=== PATIENT | female | born 1970 | race Caucasian/White ===

== ENCOUNTER 2017-04-10 15:06 | Observation (INO) | payer SELFPAY ==
[2017-04-10] MEDS ORDERED: Sodium Chloride 0.9% 10 ML Syringe FLUSH PRN (15:13)
--- NOTE | 2017-04-10 15:41 | EDM.PDOC ---
ED HPI GENERAL MEDICAL PROBLEM - General Chief Complaint: Chest Pain Stated Complaint: Chest Pain Time Seen by Provider: 04/10/17 15:12 Source of Information: Reports: Patient History Limitations: Reports: No Limitations - History of Present Illness INITIAL COMMENTS - FREE TEXT/NARRATIVE: Patient referred to ER from [facility] after she presented there for left sided chest pain. Pain started yesterday and has been continuously present since then. Sharp, stabbing, and located in left anterior chest. Breathing makes it worse as does moving her left arm or trying to press palms together. Only change in usual activity or possible trigger for muscle injury was when she visited a friend yesterday and tried to help the friend "crack" their hip by bending legs/knees over abdomen to accomplish this. Does not remember any pain or unusual sensation at the time when she helped the friend get their legs in the air in the correct position. No numbness/tingling/weakness. No cough/wheezing. Smokes about 1/4 PPD No GI changes. No diaphoresis. No history of similar issues in past. Denies cardiac disease history. - Related Data Allergies Allergy/AdvReac Type Severity Reaction Status Date / Time ondansetron Allergy Hallucinati Verified 04/10/17 15:41 [From Zofran (as ons hydrochloride)] promethazine [From Phenergan] Allergy Hallucinati Verified 04/10/17 15:41 ons Home Meds: Home Meds . [No Known Home Meds] 04/10/17 [History] Past Medical History - Past Surgical History GI Surgical History: Reports: Appendectomy Female Surgical History: Reports: Section, Hysterectomy Musculoskeletal Surgical History: Reports: Shoulder Surgery (left) Social & Family History - Family History Cardiac: Reports: CAD, High Cholesterol, Hypertension, [place] Endocrine/Metabolic: Reports: Diabetes, type II - Tobacco Use Smoking Status *Q: Current Every Day Smoker - Alcohol Use Alcohol Use History: No - Recreational Drug Use Recreational Drug Use: Yes Drug Use in Last 12 Months: Yes Recreational Drug Type: Reports: Marijuana/Hashish ED ROS GENERAL - Review of Systems Review Of Systems: See Below Constitutional: Reports: No Symptoms. Denies: Fever, Weakness, Diaphoresis HEENT: Reports: No Symptoms Respiratory: Reports: Shortness of Breath (hurts to take a breath). Denies: Wheezing, Pleuritic Chest Pain, Cough, Sputum, Hemoptysis Cardiovascular: Reports: Chest Pain (see HPI). Denies: Dyspnea on Exertion, Edema, Lightheadedness, Orthopnea, Palpitations, Syncope GI/Abdominal: Reports: No Symptoms : Reports: No Symptoms Musculoskeletal: Reports: Other (left anterior chest pain, non-radiating). Denies: Neck Pain, Shoulder Pain, Arm Pain, Back Pain Skin: Reports: No Symptoms Neurological: Reports: No Symptoms. Denies: Headache, Numbness, Paresthesia, Tingling, Trouble Speaking, Difficulty Walking, Weakness, Change in Speech, Gait Disturbance Psychiatric: Reports: No Symptoms Hematologic/Lymphatic: Reports: No Symptoms ED EXAM, GENERAL - Physical Exam Exam: See Below Exam Limited By: No Limitations General Appearance: Alert, Moderate Distress, Obese Eye Exam: Bilateral Eye: EOMI, PERRL Ears: Normal External Exam Nose: No: Nasal Deformity, Nasal Swelling, Nasal Drainage Throat/Mouth: Normal Lips, Normal Voice, No Airway Compromise, Other (poor dentition. Some teeth missing. Mucus membranes moist. ) Head: Atraumatic, Normocephalic Neck: Normal Inspection, Supple, Non-Tender, Full Range of Motion. No: Lymphadenopathy (L), Lymphadenopathy (R) Respiratory/Chest: No Respiratory Distress, Lungs Clear, Normal Breath Sounds, No Accessory Muscle Use, Other (left anterior chest wall very tender, even to slight touch, reproduces patient complaint. ) Cardiovascular: Normal Peripheral Pulses, Regular Rate, Rhythm, No Edema, No JVD , No Murmur Peripheral Pulses: 2+: Radial (L), Radial (R), Dorsalis Pedis (L), Dorsalis Pedis (R) GI/Abdominal: Normal Bowel Sounds, Soft, Non-Tender, No Distention (Female) Exam: Deferred Rectal (Female) Exam: Deferred Back Exam: Normal Inspection. No: CVA Tenderness (L), CVA Tenderness (R), Muscle Spasm, Paraspinal Tenderness, Vertebral Tenderness Extremities: Non-Tender, No Pedal Edema, Normal Capillary Refill, Limited Range of Motion (left shoulder-movement triggers left chest pain in pectoral distribution. ) Neurological: Alert, Oriented, CN II-XII Intact, Normal Cognition, Normal Gait, Other (Equal tone and strength overall, limitations with testing left arm due to triggering left chest pain. 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 ) Psychiatric: Anxious Skin Exam: Warm, Dry, Intact, Normal Color, No Rash EKG INTERPRETATION EKG Date: 04/10/17 Time: 15:20 Rhythm: NSR Rate (Beats/Min): 93 [place]: Normal P-Wave: Present QRS: Normal ST-T: Normal QT: Normal Comparison: NA - No Prior EKG Course - Orders/Labs/Meds Orders: Active Orders 24 hr Category Date Time Status EKG Documentation Completion [RC] ASDIRECTED Care 04/10/17 15:15 Ordered Chest 2V [CR] Stat Exams 04/10/17 15:13 Ordered Potassium Chloride [KCl 10 MEQ in Water 50 ML] 10 meq Med 04/10/17 16:23 Ordered Premix Bag 1 bag IV ONETIME Sodium Chloride 0.9% [Normal Saline] 1,000 ml Med 04/10/17 16:23 Ordered IV ASDIRECTED Sodium Chloride 0.9% [Saline Flush] Med 04/10/17 15:13 Ordered 10 ml FLUSH ASDIRECTED PRN Saline Lock Insert [OM.PC] Stat Oth 04/10/17 15:13 Ordered Medication Orders Potassium Chloride 10 meq/ (Premix) 50 mls @ 50 mls/hr IV ONETIME ONE Stop: 04/10/17 17:22 Sodium Chloride (Normal Saline) 1,000 mls @ 100 mls/hr IV ASDIRECTED ONE Stop: 04/11/17 02:22 Sodium Chloride (Saline Flush) 10 ml FLUSH ASDIRECTED PRN PRN Reason: Keep Vein Open Labs: Laboratory Tests 04/10/17 04/10/17 04/10/17 Range/Units 15:16 15:16 15:16 WBC 5.4 (4.0-10.2) K/uL RBC 4.57 (3.77-5.09) M/uL Hgb 14.0 (11.7-15.5) g/dL Hct 41.3 (34.0-46.0) % MCV 90.4 (84.0-98.0) fL MCH 30.6 (28.2-33.3) pg MCHC 33.9 (31.7-36.0) g/dL RDW 13.1 (11.2-14.1) % Plt Count 196 (150-350) K/uL Neut % (Auto) 57.6 (45.0-80.0) % Lymph % (Auto) 30.7 (10.0-50.0) % [place] % (Auto) 10.0 (2.0-14.0) % Eos % (Auto) 1.1 (0.0-5.0) % Baso % (Auto) 0.6 (0.0-2.0) % Neut # (Auto) 3.12 (1.40-7.00) K/uL Lymph # (Auto) 1.66 (0.50-3.50) K/uL [place] # (Auto) 0.54 (0.00-1.00) K/uL Eos # (Auto) 0.06 (0.00-0.50) K/uL Baso # (Auto) 0.03 (0.00-0.20) K/uL D-Dimer, Quantitative < 100 (0-400) ng/mL Sodium 143 (136-145) mmol/L Potassium 2.8 L* (3.5-5.1) mmol/L Chloride 105 (98-107) mmol/L Carbon Dioxide 28.8 (21.0-32.0) mmol/L BUN 10 (7-18) mg/dL Creatinine 0.71 (0.51-1.17) mg/dL Est Cr Clr Drug Dosing 77.47 mL/min Estimated GFR (MDRD) > 60 mL/min Glucose 103 (74-106) mg/dL Calcium 9.1 (8.5-10.1) mg/dL Magnesium 1.8 (1.8-2.4) mg/dL Total Bilirubin 0.5 (0.2-1.0) mg/dL AST 11 L (15-37) U/L ALT 26 (12-78) U/L Alkaline Phosphatase 74 (46-116) IU/L Creatine Kinase 51 (26-308) U/L Creatine Kinase Index 2.0 (0.0-2.5) % CK-MB (CK-2) 1.00 (0.00-3.60) ng/mL Troponin I 0.000 (0.000-0.056) ng/mL Total Protein 7.0 (6.4-8.2) g/dL Albumin 3.8 (3.4-5.0) g/dL Meds: Medications Generic Name Dose Route Start Last Admin Trade Name Freq PRN Reason Stop Dose Admin Potassium Chloride 10 meq/ 50 mls @ 50 mls/hr 04/10/17 16:23 Premix IV 04/10/17 17:22 ONETIME ONE Sodium Chloride 1,000 mls @ 100 mls/hr 04/10/17 16:23 Normal Saline IV 04/11/17 02:22 ASDIRECTED ONE Sodium Chloride 10 ml 04/10/17 15:13 Saline Flush FLUSH ASDIRECTED PRN Keep Vein Open Discontinued Medications Generic Name Dose Route Start Last Admin Trade Name Freq PRN Reason Stop Dose Admin Diazepam 5 mg 04/10/17 15:34 04/10/17 15:49 Valium IVPUSH 04/10/17 15:35 Not Given ONETIME ONE Diazepam 5 mg 04/10/17 15:49 04/10/17 16:29 Valium. PO 04/10/17 15:50 5 mg ONETIME ONE Administration Diazepam 5 mg 04/10/17 15:49 04/10/17 15:51 Valium. PO 04/10/17 15:50 Not Given ONETIME ONE Ketorolac Tromethamine 30 mg 04/10/17 16:26 04/10/17 16:36 Toradol IVPUSH 04/10/17 16:27 30 mg ONETIME ONE Administration Lorazepam 1 mg 04/10/17 15:50 04/10/17 15:56 Ativan IVPUSH 04/10/17 15:51 Not Given ONETIME ONE Lorazepam 0.5 mg 04/10/17 15:50 04/10/17 16:29 Ativan IVPUSH 04/10/17 15:51 0.5 mg ONETIME ONE Administration Morphine Sulfate 5 mg 04/10/17 16:25 Morphine IVPUSH 04/10/17 16:26 ONETIME ONE Nicotine 21 mg 04/10/17 16:32 Habitrol TRDERM 04/10/17 16:33 ONETIME ONE Potassium Chloride 40 meq 04/10/17 15:52 04/10/17 16:28 Klor-Con M20 PO 04/10/17 15:53 40 meq ONETIME ONE Administration - Radiology Interpretation Free Text/Narrative:: Chest xray did not show changes suggesting pneumo/infiltrate/CHF. No cardiomegaly - Re-Assessments/Exams Free Text/Narrative Re-Assessment/Exam: 04/10/17 16:40 EKG/Trop/CKMB/DDimer/CBC overall unremarkable. Significant hypokalemia noted. Possible that this is triggering muscle spasm and is cause of presenting complaint. Patient given potassium in ER. Admitted observation. Plan at this time is to continue K supplementation as well as continue cardiac monitoring and serial troponin/CKMB. Anticipate likely discharge tomorrow if potassium level can be normalized and pain improved. Will have patient follow up with primary provider for continued evaluation of cause of hypokalemia as that is unclear at this point in time. However, patient admits to eating less recently as she is trying to lose weight. Departure - Departure Time of Disposition: 17:01 Disposition: Refer to Observation Condition: Fair Clinical Impression: Hypokalemia, Left-sided chest wall pain, Hypomagnesemia - Discharge Information Referrals: Bhakti Cárdenas PA-C [Primary Care Provider] - Forms: ED Department Discharge - Problem List & Annotations (1) Hypokalemia SNOMED Code(s): 72485949 Code(s): E87.6 - HYPOKALEMIA Status: Acute Priority: High Current Visit : Yes Onset Date: ~04/10/17 Annotation/Comment:: Supplemental potassium PO and IV planned. May be associated with patient's complaint of left chest pain. (2) Hypomagnesemia SNOMED Code(s): 930155596 Code(s): E83.42 - HYPOMAGNESEMIA Status: Chronic Priority: Medium Current Visit: Yes Annotation/Comment:: Patient's serum magnesium is at bottom of normal which would indicate that intracellular Mg is assuredly low. Will initiate PO supplementation. May also be contributing to left chest wall pain if indeed musculo/skeletal in nature. (3) Left-sided chest wall pain SNOMED Code(s): 784223568 Code(s): R07.89 - OTHER CHEST PAIN Status: Acute Priority: High Current Visit: Yes Onset Date: 04/09/17 Annotation/Comment:: No history of cardiac disease. Strong family history of CAD. Initial cardiac workup negative. Will perform serial labs and repeat EKG in am. Pain is reproducible by palpation over left pectoral muscle, and made worse with movement and breathing. Suggests chest wall pain of musculoskeletal origin. May be related to patient's low K and Mg. (4) Tobacco dependence SNOMED Code(s): 42512316 Code(s): F17.200 - NICOTINE DEPENDENCE, UNSPECIFIED, UNCOMPLICATED Status: Chronic Priority: Low Current Visit: Yes - Problem List Review Problem List Initiated/Reviewed/Updated: Yes - My Orders Last 24 Hours: My Active Orders 04/10/17 15:13 Chest 2V [CR] Stat Sodium Chloride 0.9% [Saline Flush] 10 ml FLUSH ASDIRECTED PRN Saline Lock Insert [OM.PC] Stat 04/10/17 15:15 EKG Documentation Completion [RC] ASDIRECTED 04/10/17 16:23 Potassium Chloride [KCl 10 MEQ in Water 50 ML] 10 meq Premix Bag 1 bag IV ONETIME Sodium Chloride 0.9% [Normal Saline] 1,000 ml IV ASDIRECTED - Assessment/Plan Admission H&P: Please use this note as an admission H&P Last 24 Hours: My Active Orders 04/10/17 15:13 Chest 2V [CR] Stat Sodium Chloride 0.9% [Saline Flush] 10 ml FLUSH ASDIRECTED PRN Saline Lock Insert [OM.PC] Stat 04/10/17 15:15 EKG Documentation Completion [RC] ASDIRECTED 04/10/17 16:23 Potassium Chloride [KCl 10 MEQ in Water 50 ML] 10 meq Premix Bag 1 bag IV ONETIME Sodium Chloride 0.9% [Normal Saline] 1,000 ml IV ASDIRECTED Assessment:: Left chest pain. Hypokalemia. Low Magnesium. Plan: Admit observation. Telemetry. Serial cardiac markers. Repeat EKG in AM. IV and PO potassium. PO magnesium. Anticipate discharge within 24-36 hours if numbers normalize, cardiac workup remains negative, and pain improves.
[2017-04-10] MEDS ORDERED: Diazepam 5 MG Tab PO ONE ×2 (15:49)
[2017-04-10] MEDS ORDERED: LORazepam 2 MG/ML SDV IVPUSH ONE ×2 (15:50)
[2017-04-10 15:52] LABS: CHLORIDE,CL 105 mmol/L (98-107); SODIUM,NA 143 mmol/L (136-145)
[2017-04-10] MEDS ORDERED: Potassium Chloride 20 MEQ Tab.ER PO ONE ×3 (15:52→23:00)
[2017-04-10] MEDS ORDERED: Sodium Chloride 0.9% 1,000 ML IV ONE (16:23)
[2017-04-10] MEDS ORDERED: Potassium Chloride 10 MEQ in Premix Bag 1 BAG IV ONE ×2 (16:23→19:00)
[2017-04-10] MEDS ORDERED: Morphine 10 MG/ML Syringe IVPUSH ONE (16:25)
[2017-04-10] MEDS ORDERED: Ketorolac 30 MG/ML SDV IVPUSH ONE (16:26)
[2017-04-10] MEDS ORDERED: Nicotine 21 MG/24 Hr Patch TRDERM ONE (16:32)
[2017-04-10] MEDS: D5 1/2 NS w/ 40 mEq/L KCl 1,000 ML IV SCH (17:31)
[2017-04-10] MEDS ORDERED: Magnesium Oxide 400 MG Tab PO ONE (17:36)
[2017-04-10] MEDS ORDERED: Prochlorperazine 10 MG/2 ML SDV IVPUSH PRN (17:42)
[2017-04-10] MEDS ORDERED: Diazepam 5 MG Tab PO PRN (17:44)
[2017-04-10] MEDS ORDERED: Ketorolac 30 MG/ML SDV IVPUSH PRN (17:45)
[2017-04-10] MEDS ORDERED: Acetaminophen 325 MG Tab PO PRN (17:46)
[2017-04-10] MEDS ORDERED: Morphine 10 MG/ML Syringe IVPUSH PRN (17:46)
[2017-04-10] MEDS: Nicotine 21 MG/24 Hr Patch TRDERM SCH (18:18)
[2017-04-11] MEDS: D5 1/2 NS w/ 40 mEq/L KCl 1,000 ML IV SCH (04:39)
[2017-04-11] MEDS ORDERED: Magnesium Oxide 400 MG Tab PO SCH (08:00)
[2017-04-11] MEDS ORDERED: Potassium Chloride 20 MEQ Tab.ER PO SCH (08:00)
[2017-04-11] MEDS: Nicotine 21 MG/24 Hr Patch TRDERM SCH (08:33)
[2017-04-11 08:50] LABS: CHLORIDE,CL 108 mmol/L (98-107); SODIUM,NA 141 mmol/L (136-145)
--- NOTE | 2017-04-11 10:16 | PCM.DCSUM1 ---
Discharge Summary - Hospital Course HPI Initial Comments: See emergency room note/admission H&P Brief History: See emergency room note/admission H&P - Discharge Data Discharge Date: 04/11/17 Discharge Disposition: Home, Self-Care 01 Condition: Good - Discharge Diagnosis/Problem(s) (1) Left-sided chest wall pain SNOMED Code(s): 795956066 ICD Code: R07.89 - OTHER CHEST PAIN Status: Acute Priority: High Current Visit: Yes Onset Date: 04/09/17 Problem Details: Occasional nonspecific brief/seconds of chest wall pain spasms, including during hospital rounds this morning. No evidence of true anginal type symptoms with no previous history of cardiac disease. She has not had a cardiac workup to this point. Note some nonspecific anterior wall T wave inversions in today's EKG, although negative serial cardiac enzymes. She does have multiple cardiac risk factors, including newly diagnosed mild dyslipidemia today, current illicit drug use, previous alcohol abuse between ages 15 and her mid 30s, and tobacco abuse, including smoking one half to one pack of cigarettes per day between ages 12 and currently, i.e., 33 years. Close follow-up by her regular providers as per discharge instructions. Cardiolite stress test advisable LUAN, although this is not available in our facility until 05/04. Work excuse provided, including recommended work restrictions, fall/injury precautions, etc., which was also discussed with the patient and her brother today. Strong family history of CAD, including her sister having a two-vessel CABG in her mid 50s and a brother with 2 PTCA/stents in his mid 50s, although they apparently did not have MIs. Mother with history of fatal ND and CHF at age 73 with previous PTCA/stent 2 in her 60s. Note that her chest wall pain was previously reproducible by palpation over left pectoral muscle and made worse with movement and breathing. Suggests chest wall pain of musculoskeletal origin. Note normal potassium today with similar type symptoms as on admission, although significantly improved. (2) Illicit drug use, continuous SNOMED Code(s): 416952451 ICD Code: F19.90 - OTHER PSYCHOACTIVE SUBSTANCE USE, UNSPECIFIED, UNCOMPLICATED Status: Chronic Priority: Medium Current Visit: Yes Problem Details: Note positive urine drug screen as below. IV Ativan given in the emergency room. Patient admits to previous methamphetamine abuse with apparent one time use shortly prior to admission otherwise not for quite some time? She also admits to regular marijuana use. Cessation of all illicit drug use LUAN was strongly encouraged with effects on her health status, including her heart, etc. also extensively discussed with the patient and her brother, Masood. Emotional support provided (3) Tobacco abuse counseling SNOMED Code(s): 309992922, 638329037 ICD Code: Z71.6 - TOBACCO ABUSE COUNSELING Status: Chronic Priority: Medium Current Visit: Yes Problem Details: Tobacco cessation strongly encouraged with information to be provided at discharge and nicotine patch therapy conducted during this hospitalization. Consider PFTs depending on her clinical course with no known previous history of COPD (4) Osteoarthritis SNOMED Code(s): 918531371 ICD Code: M19.90 - UNSPECIFIED OSTEOARTHRITIS, UNSPECIFIED SITE Status: Chronic Priority: Medium Current Visit: Yes Problem Details: Otherwise stable other than intermittent nonspecific left chest wall pain/spasms Qualifiers: Osteoarthritis location: multiple joints Osteoarthritis type: primary Qualified Code(s): M15.0 - Primary generalized (osteo)arthritis (5) Mixed anxiety depressive disorder SNOMED Code(s): 550796846 ICD Code: F41.8 - OTHER SPECIFIED ANXIETY DISORDERS Status: Chronic Priority: Medium Current Visit: Yes Problem Details: Persistent moderate anxious and depressed affect during today's evaluation with no suicidal ideation. Note illicit drug use as above. Continue to observe closely by her regular providers. Emotional support provided (6) Hypokalemia SNOMED Code(s): 39872349 ICD Code: E87.6 - HYPOKALEMIA Status: Acute Priority: High Current Visit: Yes Onset Date: ~04/10/17 Problem Details: No specific etiology of patient's severe hypokalemia on arrival. She denies recurrent diarrhea, emesis, etc., although she has been on a liquid diet. Her diet discussed with low-fat, low-cholesterol diet recommended. Observe closely by her regular providers with no current additional supplementation and resolution of her hypokalemia prior to discharge after supplementation during this hospitalization (7) Hypomagnesemia SNOMED Code(s): 003110812 ICD Code: E83.42 - HYPOMAGNESEMIA Status: Acute Priority: Medium Current Visit: Yes Onset Date: 04/10/17 Problem Details: Patient's serum magnesium is at bottom of normal which would indicate that intracellular Mg is assuredly low. Will initiate PO supplementation. May also be contributing to left chest wall pain if indeed musculo/skeletal in nature. (8) Dyslipidemia SNOMED Code(s): 837719791 ICD Code: E78.5 - HYPERLIPIDEMIA, UNSPECIFIED Status: Acute Priority: Medium Current Visit: Yes Onset Date: 04/11/17 Problem Details: Mild dyslipidemia diagnosed today. Observe for now. Initiate heart healthy diet. Glycosylated hemoglobin normal today, despite strong family history of diabetes mellitus - Patient Summary/Data Operative Procedure(s) Performed: None Complications: None Consults: None Labs Pending at D/C: Urine culture and sensitivity Chest x-ray report, final, from 03/10/17 Recommended Follow-up Testing/Procedures: As per discharge instructions Planned Operative Procedure(s) after DC: None Hospital Course: Patient was admitted to observation status on telemetry with negative workup for acute ND as above. Note multiple cardiac risk factors and nonspecific EKG changes this morning with various therapeutic options discussed. Outpatient workup for now with close follow-up by her regular provider as per discharge instructions. Patient did receive both oral and IV potassium supplementation with additional oral magnesium IV Ativan, and IV Toradol therapy for her nonspecific chest wall pain. No complications during this hospitalization. Overall good response to treatment measures during this hospitalizations as above. - Patient Instructions Diet: Heart Healthy Diet Activity: No Strenuous Activities (Maintain 50% maximum exercise restriction with strict fall and injury precautions until your cardiac status has been determined any have been released by your providers) Driving: May Drive Today Showering/Bathing: May Shower Notify Provider of: Increased Pain, Nausea and/or Vomiting Other/Special Instructions: 1. Follow-up with your regular provider, Bhakti Moore PA-C, at [facility] in one week with recommended CBC, troponin I, CK, CK-MB, basic metabolic panel, magnesium level, and EKG. 2. Activity restrictions, fall/injury precautions, etc. as discussed. 3. Work excuse- See Form. 4. Stop all tobacco and marijuana use LUAN as directed/per provided information and consider contacting [employer], etc.. 5. Discontinue all illicit drug use LUAN as discussed. 6. Tylenol 650 mg by mouth every 4 hours and/or OTC ibuprofen 2-3 tabs by mouth every 6 hours with food as directed./needed. 7. BenGay or equivalent, heating pad, and/or ice packs as directed. 8. Continue to observe your anxiety and depression closely through your regular providers with possible reinitiation of previous medical therapy. 9. Discuss recommended Cardiolite stress test/heart evaluation on an outpatient basis LUAN with next available appointment in this facility on 05/04. Your regular provider may have this evaluation scheduled either in this facility or earlier at [facility], if possible. - Discharge Plan Prescriptions/Med Rec: Magnesium Oxide 400 mg PO DAILY #30 tablet Home Medications: Home Meds Magnesium Oxide 400 mg PO DAILY #30 tablet 04/11/17 [Rx] Patient Handouts: Hypokalemia, Nonspecific Chest Pain, [id number], Chest Wall Pain, [id number], Fat and Cholesterol Restricted Diet, [id number], Heart-Healthy Eating Plan, [id number] Forms: ED Department Discharge Referrals: Bhakti Cárdenas PA-C [Primary Care Provider] - - Discharge Summary/Plan Comment DC Time >30 min.: Yes Discharge Summary/Plan Comment: As above. Extensive precautions were given to the patient and her brother, Masood , who are in agreement with the treatment plan. See Patient Instructions for further treatment and plan. - General Info Date of Service: 04/11/17 Admission Dx/Problem (Free Text: 1. Nonspecific chest wall pain 2. Hypokalemia Functional Status: Reports: Pain Controlled, Tolerating Diet, Ambulating, Urinating. Denies: New Symptoms, Incentive Spirometry Numeric/FACES Score: 5 (Brief chest wall spasms) - Review of Systems General: Reports: No Symptoms. Denies: Fever, Weakness, Fatigue, Malaise, Chills, Night Sweats, Appetite HEENT: Reports: No Symptoms. Denies: Ear Pain, Eye Pain, Headaches, Post Nasal Drip, Sinus Congestion, Sore Throat, Rhinitis, Visual Changes Pulmonary: Reports: Pleuritic Chest Pain (Nonspecific chest wall pain as above) . Denies: Shortness of Breath, Cough, Sputum, Hemoptysis, Wheezing Cardiovascular: Reports: No Symptoms, Chest Pain (As above). Denies: Palpitations, Dyspnea on Exertion, Orthopnea, PND, Lightheadedness Gastrointestinal: Reports: No Symptoms, Other (Normal bowel movement this morning by patient's history). Denies: Abdominal Pain, Constipation, Decreased Appetite, Diarrhea, Difficulty Swallowing, Hematochezia, Melena, Nausea, Vomiting Genitourinary: Reports: No Symptoms. Denies: Dysuria, Frequency, Burning, Pain , Urgency, Incontinence, Hematuria, Retention, Flank Pain Musculoskeletal: Reports: No Symptoms. Denies: Neck Pain, Shoulder Pain, Arm Pain, Back Pain, Leg Pain Skin: Reports: No Symptoms. Denies: Diaphoresis, Bruising Neurological: Reports: No Symptoms. Denies: Confusion, Dizziness, Numbness, Paresthesia, Tingling, Weakness Psychiatric: Reports: Depression, Anxiety. Denies: Confusion, Mood Lability, Agitation, Cravings, Hallucinations, Suicidal Ideation, Homicidal Ideation - Patient Data Vitals - Most Recent: Last Vital Signs Temp 37.1 C 04/11/17 06:00 Pulse 89 04/11/17 06:00 Resp 15 04/11/17 06:00 BP 114/75 04/11/17 06:00 Pulse Ox 97 04/11/17 06:00 Vital Signs - 24 hr 04/10/17 04/10/17 04/10/17 15:15 15:45 16:00 Temperature [ 36.4 C 36.4 C Temporal] Pulse, 106 H 93 96 Peripheral [ Pulse Oximetry] Respiratory 20 20 18 Rate Blood Pressure 143/95 H 135/98 H 145/100 H [Right Upper] O2 Sat by Pulse 100 100 96 Oximetry 04/10/17 04/10/17 04/10/17 16:15 16:30 17:36 Temperature [ 36.4 C 36.4 C Temporal] Pulse, 90 88 73 Peripheral [ Pulse Oximetry] Respiratory 18 18 16 Rate Blood Pressure 133/94 H 151/95 H 150/92 H [Right Upper] O2 Sat by Pulse 100 100 100 Oximetry 04/11/17 04/11/17 00:00 06:00 Temperature [ 35.3 C 37.1 C Temporal] Pulse, 97 89 Peripheral [ Pulse Oximetry] Respiratory 16 15 Rate Blood Pressure 118/71 114/75 [Right Upper] O2 Sat by Pulse 96 97 Oximetry Weight - Most Recent: 76.612 kg I&O - Last 24 hours: Intake & Output 04/10/17 04/11/17 04/11/17 22:59 06:59 14:59 Intake Total 400 1095 Balance 400 1095 Imaging Impressions - Last 24 hrs: property assessment monitor shows normal sinus rhythm in the 90s with no ectopy or arrhythmia Chest x-ray, PA and lateral, from 03/10/17 shows no evidence of abnormality based on evaluation of a [facility] physician with final report pending Lab Results - Last 24 hrs: Laboratory Results - last 24 hr 04/10/17 04/11/17 04/11/17 Range/Units 20:40 05:00 05:00 Sodium (136-145) mmol/L Potassium 3.7 (3.5-5.1) mmol/L Chloride (98-107) mmol/L Carbon Dioxide (21.0-32.0) mmol/L BUN (7-18) mg/dL Creatinine (0.51-1.17) mg/dL Est Cr Clr Drug Dosing mL/min Estimated GFR (MDRD) mL/min Glucose (74-106) mg/dL Calcium (8.5-10.1) mg/dL Creatine Kinase 38 (26-308) U/L Creatine Kinase Index 1.6 (0.0-2.5) % CK-MB (CK-2) 0.60 (0.00-3.60) ng/mL Troponin I 0.004 (0.000-0.056) ng/mL Specimen Type Urinblad Urine Color Kellee Urine Appearance Cloudy Urine pH 6.5 (5.0-9.0) Ur Specific [place] 1.025 (1.005-1.030) Urine Protein Trace H (NEGATIVE) mg/dL Urine Glucose (UA) Negative (NEGATIVE) mg/dL Urine Ketones Negative (NEGATIVE) mg/dL Urine Occult Blood Negative (NEGATIVE) Urine Nitrite Negative (NEGATIVE) Urine Bilirubin Negative (NEGATIVE) Urine Urobilinogen 1.0 (0.2-1.0) E.U./dL Ur Leukocyte Esterase Negative (NEGATIVE) Urine RBC Not seen /HPF Urine WBC 5-10 H /HPF Ur Epithelial Cells Few /LPF Other Crystals Occasional /HPF Amorphous Sediment Moderate H (0/HPF) /HPF Urine Bacteria Many H (NONE TO FEW) /HPF Urine Opiates Screen Negative (NEGATIVE) Urine Methadone Screen Negative (NEGATIVE) U Acetaminophen Screen TNP Ur Barbiturates Screen Negative (NEGATIVE) Ur Tricyclics Screen Negative (NEGATIVE) Ur Phencyclidine Scrn TNP Ur Amphetamine Screen Negative (NEGATIVE) U Methamphetamines Scrn Positive H (NEGATIVE) U Benzodiazepines Scrn Positive H (NEGATIVE) U Cocaine Metab Screen Negative (NEGATIVE) U Marijuana (THC) Screen Negative (NEGATIVE) 04/11/17 04/11/17 Range/Units 07:17 07:17 Sodium 141 (136-145) mmol/L Potassium 4.2 (3.5-5.1) mmol/L Chloride 108 H (98-107) mmol/L Carbon Dioxide 26.7 (21.0-32.0) mmol/L BUN 8 (7-18) mg/dL Creatinine 0.70 (0.51-1.17) mg/dL Est Cr Clr Drug Dosing 77.90 mL/min Estimated GFR (MDRD) > 60 mL/min Glucose 117 H (74-106) mg/dL Calcium 8.4 L (8.5-10.1) mg/dL Creatine Kinase 28 (26-308) U/L Creatine Kinase Index 1.4 (0.0-2.5) % CK-MB (CK-2) 0.40 (0.00-3.60) ng/mL Troponin I 0.001 (0.000-0.056) ng/mL Specimen Type Urine Color Urine Appearance Urine pH (5.0-9.0) Ur Specific [place] (1.005-1.030) Urine Protein (NEGATIVE) mg/dL Urine Glucose (UA) (NEGATIVE) mg/dL Urine Ketones (NEGATIVE) mg/dL Urine Occult Blood (NEGATIVE) Urine Nitrite (NEGATIVE) Urine Bilirubin (NEGATIVE) Urine Urobilinogen (0.2-1.0) E.U./dL Ur Leukocyte Esterase (NEGATIVE) Urine RBC /HPF Urine WBC /HPF Ur Epithelial Cells /LPF Other Crystals /HPF Amorphous Sediment (0/HPF) /HPF Urine Bacteria (NONE TO FEW) /HPF Urine Opiates Screen (NEGATIVE) Urine Methadone Screen (NEGATIVE) U Acetaminophen Screen Ur Barbiturates Screen (NEGATIVE) Ur Tricyclics Screen (NEGATIVE) Ur Phencyclidine Scrn Ur Amphetamine Screen (NEGATIVE) U Methamphetamines Scrn (NEGATIVE) U Benzodiazepines Scrn (NEGATIVE) U Cocaine Metab Screen (NEGATIVE) U Marijuana (THC) Screen (NEGATIVE) NINFA Results - Last 24 hrs: Urine culture and sensitivity pending Med Orders - Current: Current Medications Acetaminophen (Tylenol) 650 mg PO Q6H PRN PRN Reason: Pain Last Admin: 04/11/17 04:51 Dose: 650 mg Diazepam (Valium.) 5 mg PO TID PRN PRN Reason: Spasms Potassium Chloride/Dextrose/Sod Cl (D5 1/2 Ns W/ 40 Meq/L Kcl) 1,000 mls @ 100 mls/hr IV ASDIRECTED [facility] Last Admin: 04/11/17 04:39 Dose: 100 mls/hr Ketorolac Tromethamine (Toradol) 30 mg IVPUSH Q6H PRN PRN Reason: Pain Stop: 04/15/17 17:45 Last Admin: 04/11/17 04:52 Dose: 30 mg Magnesium Oxide (Magnesium Oxide) 400 mg PO DAILY [facility] Last Admin: 04/11/17 08:33 Dose: 400 mg Morphine Sulfate (Morphine) 5 mg IVPUSH Q4H PRN PRN Reason: Pain (severe 7-10) Nicotine (Habitrol) 21 mg TRDERM DAILY [facility] Last Admin: 04/11/17 08:33 Dose: 21 mg Potassium Chloride (Klor-Con M20) 20 meq PO TID [facility] Last Admin: 04/11/17 08:32 Dose: 20 meq Prochlorperazine Edisylate (Compazine) 5 mg IVPUSH Q6H PRN PRN Reason: Nausea Sodium Chloride (Saline Flush) 10 ml FLUSH ASDIRECTED PRN PRN Reason: Keep Vein Open Last Admin: 04/11/17 04:55 Dose: 10 ml Discontinued Medications Diazepam (Valium) 5 mg IVPUSH ONETIME ONE Stop: 04/10/17 15:35 Last Admin: 04/10/17 15:49 Dose: Not Given Diazepam (Valium.) 5 mg PO ONETIME ONE Stop: 04/10/17 15:50 Last Admin: 04/10/17 16:29 Dose: 5 mg Diazepam (Valium.) 5 mg PO ONETIME ONE Stop: 04/10/17 15:50 Last Admin: 04/10/17 15:51 Dose: Not Given Potassium Chloride 10 meq/ (Premix) 50 mls @ 50 mls/hr IV ONETIME ONE Stop: 04/10/17 17:22 Last Admin: 04/10/17 17:30 Dose: 50 mls/hr Sodium Chloride (Normal Saline) 1,000 mls @ 100 mls/hr IV ASDIRECTED ONE Stop: 04/11/17 02:22 Last Admin: 04/10/17 17:47 Dose: Not Given Potassium Chloride 10 meq/ (Premix) 50 mls @ 50 mls/hr IV ONETIME ONE Stop: 04/10/17 19:59 Last Admin: 04/10/17 19:25 Dose: 50 mls/hr Ketorolac Tromethamine (Toradol) 30 mg IVPUSH ONETIME ONE Stop: 04/10/17 16:27 Last Admin: 04/10/17 16:36 Dose: 30 mg Lorazepam (Ativan) 1 mg IVPUSH ONETIME ONE Stop: 04/10/17 15:51 Last Admin: 04/10/17 15:56 Dose: Not Given Lorazepam (Ativan) 0.5 mg IVPUSH ONETIME ONE Stop: 04/10/17 15:51 Last Admin: 04/10/17 16:29 Dose: 0.5 mg Magnesium Oxide (Magnesium Oxide) 800 mg PO ONETIME ONE Stop: 04/10/17 17:37 Last Admin: 04/10/17 17:54 Dose: 800 mg Morphine Sulfate (Morphine) 5 mg IVPUSH ONETIME ONE Stop: 04/10/17 16:26 Last Admin: 04/10/17 17:29 Dose: 5 mg Nicotine (Habitrol) 21 mg TRDERM ONETIME ONE Stop: 04/10/17 16:33 Last Admin: 04/10/17 17:30 Dose: 21 mg Potassium Chloride (Klor-Con M20) 40 meq PO ONETIME ONE Stop: 04/10/17 15:53 Last Admin: 04/10/17 16:28 Dose: 40 meq Potassium Chloride (Klor-Con M20) 20 meq PO ONETIME ONE Stop: 04/10/17 19:01 Last Admin: 04/10/17 19:25 Dose: 20 meq Potassium Chloride (Klor-Con M20) 20 meq PO ONETIME ONE Stop: 04/10/17 23:01 Last Admin: 04/10/17 22:18 Dose: 20 meq - Exam Quality Assessment: Reports: Supplemental Oxygen, DVT Prophylaxis. Denies: Central Line/PICC, Urine Catheter, Skin Breakdown, Restraints General: Reports: Alert, Oriented, Cooperative, No Acute Distress HEENT: Reports: Pupils Equal, Pupils Reactive, EOMI, Mucous Membr. Moist/[place]. Denies: Scleral Icterus Neck: Reports: Supple, Trachea Midline, No JVD, No Thyromegaly. Denies: Lymphadenopathy Lungs: Reports: Clear to Auscultation, Normal Respiratory Effort. Denies: Rub Cardiovascular: Reports: Regular Rate, Regular Rhythm, No Murmurs. Denies: Gallops, Rubs GI/Abdominal Exam: Normal Bowel Sounds, Soft, Non-Tender, No Organomegaly, No Distention, No Abnormal Bruit, No Mass. No: Guarding (Female) Exam: Deferred Rectal (Female) Exam: Deferred Back Exam: Reports: Normal Inspection, Full Range of Motion. Denies: CVA Tenderness (L), CVA Tenderness (R), Muscle Spasm Extremities: Normal Inspection, Normal Range of Motion, Non-Tender, No Pedal Edema, Normal Capillary Refill. No: Angely's Sign Skin: Reports: Warm, Dry, Intact. Denies: Ecchymosis Neurological: Reports: No New Focal Deficit Psy/Mental Status: Reports: Anxious (Moderate), Depressed (Moderate). Denies: Agitated, Suicidal Ideation, Homicidal Ideation, Hallucinations, Withdrawal Symptoms EKG INTERPRETATION EKG Date: 04/11/17 Time: 07:57 Rhythm: NSR Rate (Beats/Min): 96 [place]: Normal (Neutral) P-Wave: Enlarged (Mild diffuse biphasic P waves with extreme poor R-wave progression in the anterior leads) QRS: Normal (QRS interval of 0.08 seconds) ST-T: Other (New T wave inversion in lead V2 possibly secondary to lead placement versus repolarization changes with stable T-wave inversion in lead V1) QT: Normal CO/PQ Interval: 0.14 seconds representing a short CO interval with no delta waves noted Comparison: Change From Previous EKG (As above since 04/10/17) EKG Interpretation Comments: 1. Borderline anterior wall cardiac ischemia 2. Possible left atrial enlargement 3. Short CO interval *Q Meaningful Use (DIS) - VTE *Q VTE Criteria *Q: - Stroke *Q Stroke Criteria *Q: - AMI *Q AMI Criteria *Q:
== END 2017-04-11 12:15 | disposition home or self-care (01) ==
LOC: LL.ED 15:06 → LL.MS 16:15
PROVIDERS: ADMIT Emergency Medicine; ATTEND Family Medicine
DX: R07.89 Other chest pain (principal); F19.90 Other psychoactive substance use, unspecified, uncomplicated; M15.0 Primary generalized (osteo)arthritis; F41.8 Other specified anxiety disorders; E87.6 Hypokalemia; E83.42 Hypomagnesemia; E78.5 Hyperlipidemia, unspecified; Z71.6 Tobacco abuse counseling; Z79.899 Other long term (current) drug therapy; Z88.8 Allergy status to other drugs, medicaments and biological substances; Z90.49 Acquired absence of other specified parts of digestive tract; Z90.710 Acquired absence of both cervix and uterus; F17.210 Nicotine dependence, cigarettes, uncomplicated
CPT/HCPCS: 36415; 71046; 80048; 80053; 80061; 80305; 81001; 82550; 82553; 83036; 83735; 84132; 84484; 85025; 85379; 87086; 87088; 93005; 96361; 96365; 96366; 96375; 96376; 99285; A9270; G0378; J1885; J2060; J2270; J3480; J7050; 87186; 93010; 96374; 99217; 99220

== ENCOUNTER 2017-04-17 10:44 | Emergency (ER) | payer SELFPAY ==
[2017-04-17] MEDS ORDERED: Aspirin 81 MG Tab.Chew CHEW ONE (11:04)
[2017-04-17] MEDS ORDERED: Ticagrelor 90 MG Tab PO ONE (11:04)
[2017-04-17] MEDS ORDERED: Metoprolol Tartrate 5 MG/5 ML SDV IVPUSH ONE (11:04)
[2017-04-17] MEDS ORDERED: Famotidine 20 MG/2 ML SDV IVPUSH ONE (11:04)
[2017-04-17] MEDS ORDERED: Sodium Chloride 0.9% 10 ML Syringe FLUSH PRN (11:04)
--- NOTE | 2017-04-17 11:08 | EDM.PDOC ---
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 Also follow-up with your regular provider in about one week for reevaluation and recommended repeat magnesium level, UA and urine culture and sensitivity. 3. Tylenol 650 mg by mouth every 4 hours when necessary as directed. 4. Work excuse- See Form 5. Strict compliance with medical therapy as previously directed 6. Discuss current emotional stressors, etc. with your regular provider at the above follow-ups 7. Stop all use of alcohol and illicit drugs LUAN as discussed 8. Stop all tobacco use LUAN as directed/per provided information and consider contacting [employer], etc.. 9. Maintain a 25% maximum exercise restriction with continuation of strict fall and injury precautions until released by your providers in your cardiac status has been determined - Problem List & Annotations (1) Chest pain SNOMED Code(s): 90710492 Code(s): R07.9 - CHEST PAIN, UNSPECIFIED Status: Acute Priority: High Current Visit: Yes Annotation/Comment:: Chest pain protocol was initiated immediately upon patient's arrival to the emergency room with no recurrence of her chest pain during treatment. Various therapeutic options were discussed with the patient, including transfer to [place], aggressive outpatient cardiac workup, etc. with the patient not wishing to be transferred for cardiac evaluation at this time secondary to lack of medical insurance. Patient will follow-up with her regular provider as scheduled tomorrow for immediate scheduling of recommended Cardiolite stress test. Work excuse 2 were provided. Activity restrictions were extensively discussed. Recommend that the patient not be released back to work until her cardiac status has been clarified with nonspecific anterior wall T wave inversion as above. The patient did not have any chest pain or other anginal-type symptoms at discharge. Qualifiers: Chest pain type: unspecified Qualified Code(s): R07.9 - Chest pain, unspecified (2) Dyslipidemia SNOMED Code(s): 918870251 Code(s): E78.5 - HYPERLIPIDEMIA, UNSPECIFIED Status: Acute Priority: Medium Current Visit: Yes Onset Date: 04/11/17 Annotation/Comment:: Mild dyslipidemia diagnosed during recent hospitalization. Observe for now. Compliance with heart healthy diet. Glycosylated hemoglobin normal during recent hospitalization, despite strong family history of diabetes mellitus. Continue close follow-up by her regular provider with weight loss in moderation advisable (3) Hypokalemia SNOMED Code(s): 03140314 Code(s): E87.6 - HYPOKALEMIA Status: Acute Priority: High Current Visit : Yes Onset Date: ~04/10/17 Annotation/Comment:: No evidence of hypokalemia at this time, including with apparent normal potassium level at follow-up with her regular provider on 04/14 by her history. No specific etiology of patient's previous severe hypokalemia, although she was on a strict liquid diet prior to the above admission. She denies recurrent diarrhea, emesis, etc. Her diet was once again extensively discussed with low-fat, low-cholesterol diet recommended. Observe closely by her regular providers with no current additional supplementation required (4) Hypomagnesemia SNOMED Code(s): 662586642 Code(s): E83.42 - HYPOMAGNESEMIA Status: Acute Priority: Medium Current Visit: Yes Onset Date: 04/10/17 Annotation/Comment:: Patient's serum magnesium is still low, despite apparently being normal at time of follow- up visit on 04/14 as above. Compliance with magnesium oxide was strongly encouraged with close follow-up by your regular provider as per discharge instructions. (5) UTI (urinary tract infection) SNOMED Code(s): 15171605 Code(s): N39.0 - URINARY TRACT INFECTION, SITE NOT SPECIFIED Status: Acute Priority: High Current Visit: Yes Onset Date: 04/13/17 Annotation/ Comment:: Macrobid was called in for the patient by Dr. Laird, however she has yet to start this medication or fill the prescription. Initiate Macrobid LUAN as previously directed with close follow-up by her regular provider Qualifiers: Urinary tract infection type: acute cystitis Hematuria presence: without hematuria Qualified Code(s): N30.00 - Acute cystitis without hematuria (6) Illicit drug use, continuous SNOMED Code(s): 183974674 Code(s): F19.90 - OTHER PSYCHOACTIVE SUBSTANCE USE, UNSPECIFIED, UNCOMPLICATED Status: Chronic Priority: Medium Current Visit: Yes Annotation/Comment:: Note positive urine drug screen during recent hospitalization. Stop all alcohol, illicit drug, etc. use LUAN secondary to previous problems with addiction as aabove. Patient denies using methamphetamine since hospital discharge, however she continues to use marijuana on a daily basis. The effects of illicit drug use on her health status, including her heart, etc. was once again extensively discussed with the patient. Emotional support provided (7) Mixed anxiety depressive disorder SNOMED Code(s): 709123176 Code(s): F41.8 - OTHER SPECIFIED ANXIETY DISORDERS Status: Chronic Priority: Medium Current Visit: Yes Annotation/Comment:: Persistent moderate anxious and depressed affect during today's evaluation with no suicidal ideation. Note illicit drug use as above. Continue to observe closely by her regular providers. She would benefit from medical therapy, counseling, etc. (8) Osteoarthritis SNOMED Code(s): 938083007 Code(s): M19.90 - UNSPECIFIED OSTEOARTHRITIS, UNSPECIFIED SITE Status: Chronic Priority: Medium Current Visit: Yes Annotation/Comment:: Otherwise stable by history with no reproducible chest wall pain at this time Qualifiers: Osteoarthritis location: multiple joints Osteoarthritis type: primary Qualified Code(s): M15.0 - Primary generalized (osteo)arthritis (9) Tobacco abuse counseling SNOMED Code(s): 911141226, 786321543 Code(s): Z71.6 - TOBACCO ABUSE COUNSELING Status: Chronic Priority: Medium Current Visit: Yes Annotation/Comment:: Tobacco cessation was once again strongly encouraged with information to be provided at discharge. Consider PFTs depending on her clinical course with no known previous history of COPD, although evidence of COPD by today's chest x-ray - Problem List Review Problem List Initiated/Reviewed/Updated: Yes - My Orders Last 24 Hours: My Active Orders 04/17/17 11:04 Cardiac Monitoring [RC] . DIRECTED EKG Documentation Completion [RC] ASDIRECTED Oxygen Therapy, ED [RC] CONTINUOUS Peripheral IV Care [RC] . DIRECTED Pulse Oximetry [RC] CONTINUOUS Up With Assistance [RC] PFP Vital Signs [RC] PFP Chest 1V Frontal [CR] Stat Obtain Past Medical Record [OM.PC] Urgent Peripheral IV Insertion Adult [OM.PC] Stat Resuscitation Status Stat - Assessment/Plan Last 24 Hours: My Active Orders 04/17/17 11:04 Cardiac Monitoring [RC] . DIRECTED EKG Documentation Completion [RC] ASDIRECTED Oxygen Therapy, ED [RC] CONTINUOUS Peripheral IV Care [RC] . DIRECTED Pulse Oximetry [RC] CONTINUOUS Up With Assistance [RC] PFP Vital Signs [RC] PFP Chest 1V Frontal [CR] Stat Obtain Past Medical Record [OM.PC] Urgent Peripheral IV Insertion Adult [OM.PC] Stat Resuscitation Status Stat Assessment:: as above Plan: as above. Extensive precautions were given to the patient, who is in agreement with the treatment plan. See Patient Instructions for further treatment and plan.
[2017-04-17 11:56] LABS: CHLORIDE,CL 105 mmol/L (98-107); SODIUM,NA 140 mmol/L (136-145)
== END 2017-04-17 12:30 | disposition home or self-care (01) ==
LOC: LL.ED 10:44
DX: E83.42 Hypomagnesemia (principal); F41.8 Other specified anxiety disorders; E87.6 Hypokalemia; E78.5 Hyperlipidemia, unspecified; R07.2 Precordial pain; N39.0 Urinary tract infection, site not specified; M19.90 Unspecified osteoarthritis, unspecified site; F19.10 Other psychoactive substance abuse, uncomplicated; E78.00 Pure hypercholesterolemia, unspecified; F17.210 Nicotine dependence, cigarettes, uncomplicated; Z71.6 Tobacco abuse counseling; Z88.8 Allergy status to other drugs, medicaments and biological substances; Z79.899 Other long term (current) drug therapy
CPT/HCPCS: 36415; 71045; 80053; 82550; 82553; 83605; 83735; 83880; 84443; 84484; 84550; 85025; 85379; 85610; 85730; 93005; 93010; 96374; 96375; 99284; 99285; A9270; J7050; J3490; S0028